=== PATIENT | female | born 1955 | race African-American/Black ===

== ENCOUNTER 2018-08-02 23:27 | Emergency (ER) | payer MEDICARE, MEDICAID ==
[~2018-08-02] VITALS: Ht 167.6 cm; Wt 157.0 kg
[2018-08-03] MEDS ORDERED: ONDANSETRON HCL 4MG TABLET PO ONE (05:30)
[2018-08-03 05:40] VITALS: BP 139/83
== END 2018-08-03 05:41 | disposition home or self-care (01) ==
LOC: ER 23:27
DX: J40 Bronchitis, not specified as acute or chronic (principal); I10 Essential (primary) hypertension; E07.9 Disorder of thyroid, unspecified; F17.200 Nicotine dependence, unspecified, uncomplicated; Z88.6 Allergy status to analgesic agent
CPT/HCPCS: 71045; 81025; 99283; Q0162

== ENCOUNTER 2019-02-06 08:18 | Inpatient (IN) | payer MEDICARE, MEDICAID ==
[~2019-02-06] VITALS: Ht 167.6 cm; Wt 155.6 kg
[2019-02-06] MEDS ORDERED: ONDANSETRON HCL 4MG/2ML INJ IV ONE (10:30)
[2019-02-06 10:39] LABS: CHLORIDE 112 mEq/L (98-107)
[2019-02-06 10:40] LABS: BASOPHILS % 1.1 % (0.0-2.0); EOSINOPHILS % 2.3 % (0.0-5.0); HEMATOCRIT. 31.2 % (36.0-48.0); HEMOGLOBIN. 9.2 g/dL (12.0-16.0); LYMPHOCYTES % 33.5 % (20.0-50.0); MEAN CORPUSCULAR HEMOGLOBIN 18.7 pg (28.0-32.0); MEAN CORPUSCULAR VOLUME 63.5 fL (81.0-99.0); MEAN PLATELET VOLUME 8.8 fl (7.4-10.4); MONOCYTES % 3.6 % (2.0-8.0); NEUTROPHILS % 59.5 % (40.0-76.0); PLATELET 342 x1000/uL (130-400); RED BLOOD CELL COUNT 4.91 mill/uL (4.2-5.4); RED CELL DISTRIBUTION WIDTH 20.9 % (11.6-14.6)
[2019-02-06 11:07] LABS: PLATELET ESTIMATE NORMAL
[2019-02-06] MEDS ORDERED: IOHEXOL-350 100 ML BOTTLE ONE (14:05)
[2019-02-06] MEDS ORDERED: CLONIDINE 0.1MG TABLET PO PRN (14:30)
[2019-02-06] MEDS ORDERED: ONDANSETRON HCL 4MG/2ML INJ IV PRN (14:30)
[2019-02-06] MEDS ORDERED: DIPHENHYDRAMINE 50MG/ML VIAL IV PRN (14:30)
[2019-02-06] MEDS ORDERED: HYDROCODONE/ACETAMINOPHEN 5/325MG TABLET PO PRN (14:30)
[2019-02-06] MEDS ORDERED: ACETAMINOPHEN 325MG TABLET PO PRN (14:30)
[2019-02-06] MEDS ORDERED: MAGNESIUM/ALUMINUM HYDROXIDE/SIMETHICONE 30ML UDC PO PRN (14:30)
[2019-02-06] MEDS ORDERED: DOCUSATE SODIUM 100MG CAPSULE PO PRN (14:30)
[2019-02-06] MEDS ORDERED: GUAIFENESIN 200MG/10ML SUGAR FREE UDC PO PRN (14:30)
[2019-02-06 15:00] VITALS: BP 166/65
[2019-02-06] MEDS ORDERED: ZOLPIDEM TARTRATE 5MG TABLET PO PRN (15:00)
[2019-02-06 15:05] LABS: PHOSPHORUS 3.2 mg/dL (2.5-4.9)
[2019-02-06 15:30] VITALS: BP 150/72
[2019-02-06] MEDS ORDERED: FAMOTIDINE 20MG/2ML VIAL IV NR (16:00)
[2019-02-06 16:18] VITALS: BP 150/72
[2019-02-06 17:01] LABS: TOTAL IRON BINDING CAPACITY 317 ug/dL (250-450)
[2019-02-06] MEDS ORDERED: AMLO10TA80 MT (18:26)
[2019-02-06] MEDS ORDERED: LEVO112T2 MT (18:26)
[2019-02-06 20:00] VITALS: BP 150/78
[2019-02-06 23:53] LABS: CREATINE KINASE 70 IU/L (26-192)
[2019-02-06 23:55] LABS: CREATINE KINASE MB FRACTION < 1.0 ng/mL (0.5-3.6)
[2019-02-07] VITALS: BP 144/63
[2019-02-07 04:00] VITALS: BP 136/68
[2019-02-07 06:00] LABS: BASOPHILS % 0.1 % (0.0-2.0); EOSINOPHILS % 2.3 % (0.0-5.0); HEMATOCRIT. 28.7 % (36.0-48.0); HEMOGLOBIN. 8.5 g/dL (12.0-16.0); LYMPHOCYTES % 37.2 % (20.0-50.0); MEAN CORPUSCULAR HEMOGLOBIN 18.9 pg (28.0-32.0); MEAN CORPUSCULAR VOLUME 63.5 fL (81.0-99.0); MEAN PLATELET VOLUME 8.8 fl (7.4-10.4); MONOCYTES % 5.5 % (2.0-8.0); NEUTROPHILS % 54.9 % (40.0-76.0); PLATELET 300 x1000/uL (130-400); RED BLOOD CELL COUNT 4.53 mill/uL (4.2-5.4)
[2019-02-07] MEDS ORDERED: LEVOTHYROXINE SODIUM 112MCG TABLET PO SCH (06:45)
[2019-02-07 08:30] LABS: CHLORIDE 112 mEq/L (98-107)
[2019-02-07 08:58] LABS: CREATINE KINASE 64 IU/L (26-192)
[2019-02-07 09:00] LABS: HDL CHOLESTEROL 32 mg/dL (40-59)
[2019-02-07] MEDS ORDERED: AMLODIPINE 5MG TABLET PO SCH (09:00)
[2019-02-07] MEDS ORDERED: FAMOTIDINE 20MG/2ML VIAL IV SCH (09:00)
[2019-02-07 09:01] LABS: LDL CHOLESTEROL 80 mg/dL (5-100)
[2019-02-07 09:08] LABS: CREATINE KINASE MB FRACTION < 1.0 ng/mL (0.5-3.6)
[2019-02-07 12:00] VITALS: BP 149/85
[2019-02-07] MEDS ORDERED: DEXTROSE 50% WATER 50ML SYRINGE IV PRN (12:30)
[2019-02-07 14:18] VITALS: BP 140/80
[2019-02-07] MEDS ORDERED: BLOOD SUGAR DIAGNOSTIC STRIP TEST SCH (16:45)
[2019-02-07] MEDS ORDERED: INSULIN LISPRO 100 UNITS/ML SUBCUT SCH (17:15)
== END 2019-02-07 15:40 | disposition home or self-care (01) | DRG 392 ==
LOC: ER 08:18 → 5WST 12:39 → EDBEDREQ 12:41 → ENRESERV 13:52
PROVIDERS: ADMIT Internal Medicine; ATTEND Internal Medicine
DX: K52.9 Noninfective gastroenteritis and colitis, unspecified (principal); Z68.43 Body mass index [BMI] 50.0-59.9, adult; K21.9 Gastro-esophageal reflux disease without esophagitis; D50.9 Iron deficiency anemia, unspecified; D63.8 Anemia in other chronic diseases classified elsewhere; E03.9 Hypothyroidism, unspecified; E66.09 Other obesity due to excess calories; F17.210 Nicotine dependence, cigarettes, uncomplicated; I10 Essential (primary) hypertension; F51.04 Psychophysiologic insomnia; Z88.6 Allergy status to analgesic agent
CPT/HCPCS: 36415; 71045; 71275; 80061; 82550; 82553; 82728; 82962; 83036; 83540; 83550; 83735; 83880; 84100; 84443; 84484; 85379; 93005; 93306; 93970; 96374; 96375; 97162; 99285; J2405; J3490; Q9967

== ENCOUNTER 2019-04-06 06:12 | Emergency (ER) | payer MEDICARE, MEDICAID ==
[~2019-04-06] VITALS: Ht 167.6 cm; Wt 157.0 kg
[~2019-04-06 06:12] MED LIST: AMLO10TA80 MT; LEVO112T2 MT
[2019-04-06] MEDS ORDERED: SODIUM CHLORIDE 0.9% 1,000 ML IV ONE (06:38)
[2019-04-06] MEDS ORDERED: ONDANSETRON HCL 4MG/2ML INJ IV STA (06:38)
[2019-04-06] MEDS ORDERED: METOCLOPRAMIDE HCL 10MG/2ML VIAL IV ONE (08:45)
[2019-04-06 09:14] VITALS: BP 135/75
== END 2019-04-06 09:25 | disposition home or self-care (01) ==
LOC: ER 06:27
DX: R11.0 Nausea (principal); I10 Essential (primary) hypertension; E03.9 Hypothyroidism, unspecified; F17.210 Nicotine dependence, cigarettes, uncomplicated; Z88.6 Allergy status to analgesic agent
CPT/HCPCS: 82962; 96361; 96374; 96375; 99284; J2405; J2765; J7030

== ENCOUNTER 2021-03-13 02:37 | Emergency (ER) | payer MEDICARE, MEDICAID ==
[~2021-03-13] VITALS: Ht 165.1 cm; Wt 152.0 kg
[2021-03-13] MEDS ORDERED: LIDOCAINE 5% PATCH TOP SCH (03:30)
[2021-03-13] MEDS ORDERED: ACETAMINOPHEN 325MG TABLET PO ONE (03:30)
[2021-03-13 05:31] VITALS: BP 155/68
== END 2021-03-13 05:34 | disposition home or self-care (01) ==
LOC: ER 02:37
DX: M54.9 Dorsalgia, unspecified (principal); I10 Essential (primary) hypertension; E05.90 Thyrotoxicosis, unspecified without thyrotoxic crisis or storm; E03.9 Hypothyroidism, unspecified; Z88.6 Allergy status to analgesic agent
CPT/HCPCS: 99283

== ENCOUNTER 2022-02-08 05:41 | Emergency (ER) | payer MEDICARE, MEDICAID ==
[~2022-02-08] VITALS: Ht 167.6 cm; Wt 168.0 kg
[2022-02-08] MEDS ORDERED: IBUP-2030 MT (11:22)
[2022-02-08 11:40] VITALS: BP 176/75
== END 2022-02-08 11:40 | disposition home or self-care (01) ==
LOC: ER 05:41
DX: M79.661 Pain in right lower leg (principal); I10 Essential (primary) hypertension; E05.90 Thyrotoxicosis, unspecified without thyrotoxic crisis or storm
CPT/HCPCS: 93971; 99284

== ENCOUNTER 2022-08-03 09:00 | Emergency (ER) | payer MEDICARE, MEDICAID ==
[~2022-08-03] VITALS: Ht 167.6 cm; Wt 120.0 kg
[~2022-08-03 09:00] MED LIST changes: +IBUP-2030 MT
[2022-08-03] MEDS ORDERED: KETOROLAC 60MG/2ML VIAL IM ONE (11:00)
[2022-08-03] MEDS ORDERED: CYCLOBENZAPRINE 10MG TABLET PO ONE (11:00)
[2022-08-03] MEDS ORDERED: CYCL5TAB MT (11:30)
[2022-08-03] MEDS ORDERED: IBUP-2029 MT (11:30)
[2022-08-03 11:44] VITALS: BP 170/83
== END 2022-08-03 11:56 | disposition home or self-care (01) ==
LOC: ER 09:00
DX: S39.012A Strain of muscle, fascia and tendon of lower back, initial encounter (principal); I10 Essential (primary) hypertension; E03.9 Hypothyroidism, unspecified; Z90.49 Acquired absence of other specified parts of digestive tract; X58.XXXA Exposure to other specified factors, initial encounter; Y93.89 Activity, other specified; Y92.018 Other place in single-family (private) house as the place of occurrence of the external cause
CPT/HCPCS: 96372; 99283; J1885